=== PATIENT | female | born 2000 | race Caucasian/White ===

== ENCOUNTER 2020-12-14 11:47 | Outpatient (CLI) | payer OTHER | END 2020-12-14 13:05 | disposition home or self-care (01) | LOC: LDOP 11:47 | PROVIDERS: ATTEND Obstetrics & Gynecology | DX: O36.8190 Decreased fetal movements, unspecified trimester, not applicable or unspecified (principal) | CPT/HCPCS: 59025 ==

== ENCOUNTER 2020-12-31 05:51 | Inpatient (IN) | payer OTHER ==
[~2020-12-31] VITALS: Ht 160 cm; Wt 100.4 kg
[2020-12-31] MEDS: LACTATED RINGERS 1,000 ML IV SCH ×3 (06:15→19:56)
[2020-12-31] MEDS ORDERED: NEWBORN KIT ONE (06:26)
[2020-12-31] MEDS ORDERED: TERBUTALINE 1 MG/ML, 1ML IVPush PRN (06:30)
[2020-12-31] MEDS ORDERED: MISOPROSTOL 25 MCG TABLET VG PRN (06:30)
[2020-12-31] MEDS ORDERED: D5%-LACTATED RINGERS 1,000 ML IV SCH (06:30)
[2020-12-31] MEDS ORDERED: OXYTOCIN 30U/ 0.9% NaCL 500ML 500 ML IV PRN ×2 (06:30→13:00)
[2020-12-31] MEDS ORDERED: ONDANSETRON 2MG/ML, 2ML IVPush PRN ×2 (06:30→22:00)
[2020-12-31] MEDS ORDERED: FENTANYL PF 100 MCG/2ML IV PRN (06:30)
[2020-12-31] MEDS ORDERED: OXYTOCIN 30U/ 0.9% NaCL 500ML 500 ML IV ONE (06:30)
[2020-12-31] MEDS ORDERED: FENTANYL PF 100 MCG/2ML IVPush PRN (06:30)
[2020-12-31] MEDS ORDERED: CALCIUM CARBONATE 500 MG TAB.CHEW PO PRN (06:30)
[2020-12-31] MEDS ORDERED: TERBUTALINE 1 MG/ML, 1ML SQ PRN (06:30)
[2020-12-31] MEDS ORDERED: PENICILLIN GK 5,000,000 UNITS in DEXTROSE 5% 100 ML IVPB ONE (06:30)
[2020-12-31 06:47] LABS: BASOPHILS % (AUTO) 0 % (0-1); EOSINOPHILS % (AUTO) 1 % (1-7); LYMPHOCYTES % (AUTO) 25 % (22-44); MEAN CORPUSCULAR HEMOGLOBIN 28.9 pg (27.0-34.8); MEAN CORPUSCULAR HGB CONC 34.6 g/dL (32.4-35.8); MEAN PLATELET VOLUME 7.6 fL (7.4-10.4); MONOCYTES % (AUTO) 6 % (2-9); NEUTROPHILS % (AUTO) 67 % (42-75); PLATELET COUNT 288 x10^3/uL (130-400); RED BLOOD COUNT 4.08 x10^6/uL (3.82-5.3)
[2020-12-31 07:07] VITALS: BP 123/83
[2020-12-31] MEDS: PENICILLIN GK 2,500,000 UNITS in DEXTROSE 5% 100 ML IVPB SCH ×4 (10:33→22:15)
[2020-12-31 19:11] VITALS: BP 126/79
[2020-12-31] MEDS ORDERED: BUPIVACAINE 0.25% ONE (21:31)
[2020-12-31] MEDS ORDERED: FENTANYL/BUPIV./NS/PF 250 ML EPIDCONT ONE (21:31)
[2020-12-31] MEDS ORDERED: EPHEDRINE 50 MG/ML, 1ML IVPush PRN (22:00)
[2020-12-31] MEDS ORDERED: FENTANYL/BUPIV./NS/PF 250 ML EPIDCONT SCH (22:00)
[2020-12-31] MEDS ORDERED: NALOXONE 0.4 MG/ML, 1ML IVPush PRN (22:00)
[2020-12-31] MEDS ORDERED: LACTATED RINGERS 1,000 ML IVBOLUS PRN (22:00)
[2020-12-31] MEDS ORDERED: DIPHENHYDRAMINE 50 MG/ML, 1ML IVPush PRN (22:00)
[2021-01-01] MEDS: PENICILLIN GK 2,500,000 UNITS in DEXTROSE 5% 100 ML IVPB SCH ×3 (03:50→11:46)
[2021-01-01] MEDS: LACTATED RINGERS 1,000 ML IV SCH ×6 (06:26→22:00)
[2021-01-01] MEDS ORDERED: SODIUM CITRATE/CITRIC ACID 15 ML UDC ONE (12:25)
[2021-01-01] MEDS ORDERED: METOCLOPRAMIDE 5 MG/ML, 2ML ONE (12:25)
[2021-01-01] MEDS ORDERED: LIDOCAINE-MPF 2% ,5ML ONE (12:29)
[2021-01-01] MEDS ORDERED: LACTATED RINGERS 1,000 ML IVBOLUS ONE (12:30)
[2021-01-01] MEDS ORDERED: MISOPROSTOL 200 MCG TABLET ONE (12:52)
[2021-01-01] MEDS ORDERED: AZITHROMYCIN 500 MG in SODIUM CHLORIDE 0.9% 250 ML IV ONE (13:00)
[2021-01-01] MEDS ORDERED: METOCLOPRAMIDE 5 MG/ML, 2ML IV ONE (13:00)
[2021-01-01] MEDS ORDERED: SODIUM CITRATE/CITRIC ACID 30 ML UDC PO ONE (13:00)
[2021-01-01] MEDS ORDERED: FENTANYL PF 100 MCG/2ML ONE (13:30)
[2021-01-01] MEDS ORDERED: CEFAZOLIN 1,000 MG ONE (13:35)
[2021-01-01] MEDS ORDERED: EPHEDRINE 50 MG/ML, 1ML ONE (13:35)
[2021-01-01] MEDS ORDERED: DOCUSATE 100 MG CAPSULE PO PRN ×2 (14:00→16:30)
[2021-01-01] MEDS ORDERED: LACTATED RINGERS 1,000 ML IV SCH (14:00)
[2021-01-01] MEDS ORDERED: ACETAMINOPHEN 325 MG TABLET PO PRN ×2 (14:00)
[2021-01-01] MEDS ORDERED: MISOPROSTOL 200 MCG TABLET PR PRN ×2 (14:00→16:30)
[2021-01-01] MEDS ORDERED: SIMETHICONE 80 MG CHEW TAB PO PRN ×2 (14:00→16:30)
[2021-01-01] MEDS ORDERED: OXYcodone/APAP 5/325MG TABLET PO PRN ×3 (14:00→16:30)
[2021-01-01] MEDS ORDERED: ONDANSETRON 2MG/ML, 2ML IV PRN ×2 (14:00→16:30)
[2021-01-01] MEDS ORDERED: IBUPROFEN 600 MG TABLET PO PRN ×2 (14:00→16:30)
[2021-01-01] MEDS ORDERED: OXYcodone IR 5MG TABLET PO PRN (14:00)
[2021-01-01] MEDS ORDERED: OXYTOCIN 30U/ 0.9% NaCL 500ML 500 ML IV SCH (14:00)
[2021-01-01] MEDS ORDERED: OXYcodone 5 MG/5 ML ORAL.SOL UDC ONE (15:13)
[2021-01-01] MEDS ORDERED: OXYcodone 5 MG/5 ML ORAL.SOL UDC PO PRN (16:00)
[2021-01-01 16:30] VITALS: BP 108/70
[2021-01-01] MEDS: OXYTOCIN 30U/ 0.9% NaCL 500ML 500 ML IV SCH (16:30)
[2021-01-01 18:45] VITALS: BP 113/76
[2021-01-01 22:18] LABS: BASOPHILS % (AUTO) 0 % (0-1); EOSINOPHILS % (AUTO) 0 % (1-7); LYMPHOCYTES % (AUTO) 15 % (22-44); MEAN CORPUSCULAR HEMOGLOBIN 28.5 pg (27.0-34.8); MEAN CORPUSCULAR HGB CONC 34.2 g/dL (32.4-35.8); MEAN PLATELET VOLUME 7.6 fL (7.4-10.4); MONOCYTES % (AUTO) 8 % (2-9); NEUTROPHILS % (AUTO) 77 % (42-75); PLATELET COUNT 235 x10^3/uL (130-400); RED BLOOD COUNT 3.39 x10^6/uL (3.82-5.3); RED CELL DISTRIBUTION WIDTH 14.7 % (9.6-15.2)
[2021-01-02] MEDS: LACTATED RINGERS 1,000 ML IV SCH ×2 (00:30→02:30)
[2021-01-02 00:40] VITALS: BP 119/74
[2021-01-02] MEDS: OXYTOCIN 30U/ 0.9% NaCL 500ML 500 ML IV SCH (02:30)
[2021-01-02 04:33] VITALS: BP 122/76
[2021-01-02 07:25] VITALS: BP 105/71
[2021-01-02] MEDS ORDERED: OXYTOCIN 30U/ 0.9% NaCL 500ML 500 ML IV PRN (09:00)
[2021-01-02] MEDS: PRENATAL VIT/IRON/FA 1 EACH TABLET PO SCH (09:00)
[2021-01-02] MEDS ORDERED: LACTATED RINGERS 1,000 ML IV SCH ×2 (09:00)
[2021-01-02] MEDS ORDERED: ONDANSETRON 2MG/ML, 2ML IV PRN (09:00)
[2021-01-02] MEDS ORDERED: OXYTOCIN 30U/ 0.9% NaCL 500ML 500 ML IV SCH (09:00)
[2021-01-02] MEDS ORDERED: MISOPROSTOL 200 MCG TABLET PR PRN (09:00)
[2021-01-02] MEDS ORDERED: PRENATAL VIT/IRON/FA 1 EACH TABLET PO SCH ×2 (09:00)
[2021-01-02] MEDS: DOCUSATE 100 MG CAPSULE PO PRN ×2 (09:00→20:17)
[2021-01-02] MEDS ORDERED: OXYcodone/APAP 5/325MG TABLET PO PRN (09:00)
[2021-01-02] MEDS ORDERED: OXYcodone 5 MG/5 ML ORAL.SOL UDC PO PRN (09:00)
[2021-01-02] MEDS: IBUPROFEN 600 MG TABLET PO PRN ×2 (09:43→17:03)
[2021-01-02] MEDS: OXYcodone/APAP 5/325MG TABLET PO PRN (09:43)
[2021-01-02] MEDS: SIMETHICONE 80 MG CHEW TAB PO PRN ×2 (10:28→20:17)
[2021-01-03] MEDS: IBUPROFEN 600 MG TABLET PO PRN ×2 (02:12→09:38)
[2021-01-03] MEDS: OXYcodone/APAP 5/325MG TABLET PO PRN (02:12)
[2021-01-03 07:10] VITALS: BP 126/79
[2021-01-03] MEDS: PRENATAL VIT/IRON/FA 1 EACH TABLET PO SCH (09:38)
[2021-01-03] MEDS: DOCUSATE 100 MG CAPSULE PO PRN (09:38)
[2021-01-03] MEDS ORDERED: IBUP-1222 PO (11:10)
[2021-01-03] MEDS ORDERED: OXYC1TAB14 PO (11:10)
== END 2021-01-03 13:43 | disposition home or self-care (01) | DRG 788 ==
LOC: LDIP 05:51 → 2NW 01-01 16:45
PROVIDERS: ADMIT Obstetrics & Gynecology; ATTEND Obstetrics & Gynecology
PROC: 10D00Z1 Extraction of Products of Conception, Low, Open Approach (ICD-10-PCS; principal; 2021-01-01)
DX: O99.824 Streptococcus B carrier state complicating childbirth (principal); O35.8XX0 Maternal care for other (suspected) fetal abnormality and damage, not applicable or unspecified; O62.2 Other uterine inertia; Z37.0 Single live birth; Z3A.39 39 weeks gestation of pregnancy; O33.9 Maternal care for disproportion, unspecified; O32.4XX0 Maternal care for high head at term, not applicable or unspecified; Z20.822 Contact with and (suspected) exposure to COVID-19; O99.344 Other mental disorders complicating childbirth; F32.9 Major depressive disorder, single episode, unspecified
CPT/HCPCS: 36415; J3490; J7121; 85025; 86592; 86850; 86900; 87635; G0378; J0456; J0690; J2540; J3010; J2590; J2765; J7050; J7120

== ENCOUNTER 2021-02-10 21:29 | Emergency (ER) | payer OTHER ==
[~2021-02-10] VITALS: Ht 160 cm; Wt 89.3 kg
[~2021-02-10 21:29] MED LIST: IBUP-1222 PO; OXYC1TAB12 PO
--- NOTE | 2021-02-10 21:36 | NUR ---
EKG DONE IN TRIAGE.
[2021-02-10 22:54] VITALS: BP 113/63
== END 2021-02-10 23:52 | disposition home or self-care (01) ==
LOC: ED 22:48
DX: R00.2 Palpitations (principal); F43.0 Acute stress reaction
CPT/HCPCS: 93005; 99283